=== PATIENT | female | born 1995 | race Two or more races ===

== ENCOUNTER 2019-01-29 22:11 | Emergency (ER) | payer MEDICAID, OTHER ==
[~2019-01-29] VITALS: Ht 162.6 cm; Wt 63.0 kg
[2019-01-29 23:36] LABS: Basophils # (auto) 0 uL; Basophils % (auto) 0.3 % (0.0-2.0); Eosinophils # (auto) 0.1 uL; Eosinophils % (auto) 0.7 % (0.0-7.0); Hematocrit 37.4 % (36.0-46.0); Lymphocytes # (auto) 2.1 uL; Lymphocytes % (auto) 16.6 % (10.0-50.0); Mean Corpuscular Hemoglobin 31.4 pg (28.0-32.0); Mean Corpuscular Hgb Conc. 34.7 g/dL (32.0-36.0); Mean Corpuscular Volume 90.6 fL (80.0-100.0); Monocytes # (auto) 0.7 uL; Monocytes % (auto) 5.3 % (0.0-12.0); Neutrophils # (auto) 9.9 uL; Neutrophils % (auto) 77.1 % (37.0-80.0); Nucleated Red Blood Cells % 0.1 %; Platelet Count (auto) 270 10^3/uL (140-450); Red Blood Cells 4.13 10^6/uL (4.0-5.20); Red Cell Distribution Width 14.1 % (11.8-14.3); White Blood Cell 12.8 10^3/uL (4.4-10.8)
[2019-01-29 23:51] LABS: Urine Bacteria FEW /hpf (None Seen); Urine Blood 2+ /uL (Negative); Urine Mucus FEW (None Seen); Urine Specific Gravity 1.026 (1.001-1.035); Urine WBC 240 /hpf (0 - 5)
[2019-01-30 00:06] LABS: Albumin 3.5 g/dL (3.4-5.0); Potassium 3.5 mmol/L (3.5-5.1)
[2019-01-30 00:09] LABS: Bilirubin, Total 0.5 mg/dL (0.2-1.0); Total Protein 6.9 g/dL (6.4-8.2)
[2019-01-30] MEDS ORDERED: SODIUM CHLORIDE 0.9% 2,000 ML IV ONE (02:30)
[2019-01-30 08:20] VITALS: BP 99/55
== END 2019-01-30 08:47 | disposition home or self-care (01) ==
LOC: ER 22:18
DX: O20.0 Threatened abortion (principal); O23.41 Unspecified infection of urinary tract in pregnancy, first trimester; O99.341 Other mental disorders complicating pregnancy, first trimester; F41.9 Anxiety disorder, unspecified; Z3A.12 12 weeks gestation of pregnancy
CPT/HCPCS: 36415; 76801; 80053; 81001; 84702; 85025; 99284; J7030